=== PATIENT | male | born 1945 | race Caucasian/White ===

== ENCOUNTER → 2023-05-23 06:29 | Day surgery (SDC) | payer OTHER, SELFPAY | LOC: GI 06:29 | PROVIDERS: ATTENDING PHYSICIAN Surgery | DX: R19.5 Other fecal abnormalities (principal); Z53.8 Procedure and treatment not carried out for other reasons | CPT/HCPCS: 45378; G0378 ==

== ENCOUNTER → 2023-08-22 06:35 | Day surgery (SDC) | payer OTHER, SELFPAY | LOC: GI 06:35 | PROVIDERS: ATTENDING PHYSICIAN Surgery | DX: D12.2 Benign neoplasm of ascending colon (principal); D12.4 Benign neoplasm of descending colon; K64.8 Other hemorrhoids; Q43.8 Other specified congenital malformations of intestine; K56.2 Volvulus; R19.5 Other fecal abnormalities | CPT/HCPCS: 45380; 88305 ==

== ENCOUNTER → 2023-12-02 06:14 | Day surgery (SDC) | payer OTHER, SELFPAY | LOC: SDS 06:14 | PROVIDERS: ATTENDING PHYSICIAN Internal Medicine Gastroenterology | DX: D12.6 Benign neoplasm of colon, unspecified (principal); Z53.9 Procedure and treatment not carried out, unspecified reason ==

== ENCOUNTER → 2024-03-23 11:06 | Outpatient (REF) | payer OTHER, SELFPAY | LOC: RAD 11:06 | PROVIDERS: ATTENDING PHYSICIAN Family Medicine | DX: L03.116 Cellulitis of left lower limb (principal) | CPT/HCPCS: 93970 ==

== ENCOUNTER 2024-04-09 15:38 | Emergency (ER) | payer OTHER, SELFPAY ==
[2024-04-09 15:43] VITALS: BP 181/79
--- NOTE | 2024-04-09 15:47 | ED.GENMED ---
ED Provider Triage
<Elroy Patel PA-C - Last Filed: 04/09/24 15:47>
-
Patient seen by provider in Triage?: Seen in Triage
Attestation: A medical screening examination has been initiated by a qualified medical provider. Based on the assessment performed at this time, it has been determined that an emergent medical condition may exist and the patient has been informed
that further medical evaluation and possible additional diagnostic testing may be needed.
HPI:
GENERAL: Alert , in no apparent distress
EYE: No visual abnormalities.
NECK: Trachea midline
ENT: No visible abnormalities.
LUNGS: No acute respiratory distress
NEUROLOGICAL: Alert and oriented
SKIN: Skin intact. No visible changes.
MUSCULOSKELETAL: Moving extremities normally
PSYCH: Normal and appropriate interaction.
This is a medical evaluation conducted in person to initiate diagnostic evaluation and provide initial therapeutics. Please see further documentation by the treating clinician.
History of Present Illness
<Elroy Patel PA-C - Last Filed: 04/09/24 15:47>
General
Chief Complaint: Flank Pain
Time Seen by Provider: 04/09/24 18:27
<Charan Turner DO - Last Filed: 04/09/24 19:52>
History of Present Illness
History of Present Illness:
TIME OF INITIAL ENCOUNTER: 6:40 PM
HPI: The patient presents with a few days of left flank pain without urinary symptoms. He does have chronic back pain. He has had numerous surgeries in his low back. He is known to pain management and already takes Percocet, Flexeril,
nortriptyline. He does not take any NSAIDs as he is on anticoagulation.
EXAM:
GENERAL: Well appearing but in mild distress
HEENT: Moist oral mucosa
CARDIOVASCULAR: Questionable diastolic murmur right upper sternal border (difficulty to hear in the loud hallway), normal heart rate, regular rhythm, No chest wall tenderness
PULMONARY: No respiratory distress, breath sounds are clear and equal
ABDOMEN: Soft with no peritoneal signs, no tenderness
NEUROLOGIC: Excellent strength all extremities, no coordination deficits
PSYCHIATRIC: Appropriate mental status, normal insight and judgement
BACK: There is some point tenderness near the left 12th rib
EXTREMITIES: Nontender, no edema, moves all extremities equally
SKIN: No rash, no lesions
NUMBER AND COMPLEXITY OF PROBLEMS ADDRESSED AT THE ENCOUNTER
� Chronic conditions affecting care: High blood pressure, spinal stenosis
� Acute Exacerbation and/or Progression of Chronic Illness: This is an acute problem but does also have chronic back pain
� Differential Diagnosis includes: Exacerbation of spinal stenosis, exacerbation of chronic back pain, ureteral stone, pyelonephritis muscle strain okay thanks
AMOUNT AND/OR COMPLEXITY OF DATA TO BE REVIEWED AND ANALYZED
� I performed an independent evaluation of and my interpretation is:
EKG:
CT: CT abdomen pelvis shows moderate amount of fecal material throughout the colon
X-rays:
Laboratory Studies: White count 6.6, hemoglobin 15.6, chemistries unremarkable, urinalysis unremarkable
Other:
� Review of other/old records: The patient had a colonoscopy due to abnormal Cologuard test last year.
� Clinical information was obtained by an independent historian: I spoke to daughter at bedside
� Prescriptions/Medications Considered but not given:Did not give any additional prescription medications as patient is already given medications by pain management
� Further testing considered but not performed: No clear indication for MRI at this time
RISK OF COMPLICATIONS AND/OR MORBIDITY OR MORTALITY OF PATIENT MANAGEMENT
� Social determinants of health affecting care: Lives at home
� Discussion with other providers:
� Escalation of care including admission/observation vs risk of discharge considered: Will give a one-time dose of Toradol here. He is already taking narcotics for the past 20 years, cyclobenzaprine, and several other meds. He
will follow-up with his pain management doctor. CT imaging reviewed which is relatively unremarkable. Suspect symptoms are related to known chronic back disease.
ANY OTHER UPDATES:
Past History
<Elroy Patel PA-C - Last Filed: 04/09/24 15:47>
Past History
ED Past Medical History: HTN and Hypercholesterolemia
ED Past Surgical History: Appendectomy and Orthopedic (Back surgery. Total hip replacement)
Social History
Tobacco: Non-smoker
Alcohol: Daily (Beer 1)
Personal:
Living: with family
Phy Exam
<Charan Turner DO - Last Filed: 04/09/24 19:52>
Physical Exam
Physical Exam:
See HPI
Course
<Elroy Patel PA-C - Last Filed: 04/09/24 15:47>
Orders/Labs/Results
Orders:
Orders
04/09/24 15:47
CT Abd/pel Without Iv Or Oral Urgent
Comment:
Reason For Exam: left flank pain, hx of stone
04/09/24 15:49
Complete Blood Count/With Diff Urgent
Comprehensive Metabolic Panel Urgent
Urine Culture Reflexed from UA [Urinalysis Reflex To Culture] Urgent
Date Specimen was Collected: 04/09/24
Time Specimen was Collected: 15:45
04/09/24 18:49
Ketorolac [Toradol] 30 mg IM NOW STA
Abnormal Lab Results
04/09/24
15:49
MCH 31.3 H pg
(27.0-31.0)
Absolute Monos (auto) 0.7 H 10^3/uL
(0.1-0.6)
Monocytes % 10.3 H %
(1.7-9.3)
04/09/24 15:49
04/09/24 15:49
Vital Signs
Initial and Last Documented VS:
Initial Vital Signs
Temp Pulse Resp BP Pulse Ox
36.7 C 59 18 181/79 97
04/09/24 15:43 04/09/24 15:43 04/09/24 15:43 04/09/24 15:43 04/09/24 15:43
Last Documented Vital Signs
Temp Pulse Resp BP Pulse Ox
36.4 C 57 20 166/81 98
04/09/24 18:35 04/09/24 18:35 04/09/24 18:35 04/09/24 18:35 04/09/24 18:35
<Charan Turner, DO - Last Filed: 04/09/24 19:52>
Orders/Labs/Results
Orders:
Orders
04/09/24 15:47
CT Abd/pel Without Iv Or Oral Urgent
Comment:
Reason For Exam: left flank pain, hx of stone
04/09/24 15:49
Complete Blood Count/With Diff Urgent
Comprehensive Metabolic Panel Urgent
Urine Culture Reflexed from UA [Urinalysis Reflex To Culture] Urgent
Date Specimen was Collected: 04/09/24
Time Specimen was Collected: 15:45
04/09/24 18:49
Ketorolac [Toradol] 30 mg IM NOW STA
Abnormal Lab Results
04/09/24
15:49
MCH 31.3 H pg
(27.0-31.0)
Absolute Monos (auto) 0.7 H 10^3/uL
(0.1-0.6)
Monocytes % 10.3 H %
(1.7-9.3)
04/09/24 15:49
04/09/24 15:49
Vital Signs
Initial and Last Documented VS:
Initial Vital Signs
Temp Pulse Resp BP Pulse Ox
36.7 C 59 18 181/79 97
04/09/24 15:43 04/09/24 15:43 04/09/24 15:43 04/09/24 15:43 04/09/24 15:43
Last Documented Vital Signs
Temp Pulse Resp BP Pulse Ox
36.4 C 57 20 166/81 98
04/09/24 18:35 04/09/24 18:35 04/09/24 18:35 04/09/24 18:35 04/09/24 18:35
<Charan Turner DO - Last Filed: 04/09/24 19:52>
*Critical Care Note
Total Time (30-74mins, 75-104mins- exclusive of procedures): Not Applicable
ED Attending Note
<Elroy Patel PA-C - Last Filed: 04/09/24 15:47>
-
Portions of this chart may have been created with voice recognition software.� Occasional wrong word or��sound alike� substitutions may have occurred due to the inherent limitations of voice recognition software.
Discharge Plan
Departure
Patient Disposition: Home (Routine Discharge)
Date of Disposition: 04/09/24
Time of Disposition: 18:50
Patient with high blood pressure during this ER visit?: Yes
Discharge Problem:
Flank pain
Instructions: Flank Pain (DC), BLOOD PRESSURE
Prescriptions:
No Action
cyclobenzaprine 10 MG tablet
10 mg PO TID
buspirone 5 MG tablet
5 mg PO HS
cetirizine [Zyrtec] 10 MG tablet
10 mg PO HS
lisinopril 20 MG tablet
20 mg PO DAILY
aspirin [Aspir-Low] 81 MG tablet,delayed release (DR/EC)
81 mg PO DAILY
pravastatin 10 MG tablet
10 mg PO HS
amlodipine 10 MG tablet
10 mg PO DAILY
nortriptyline 10 MG capsule
10 mg PO HS
atenolol 50 MG tablet
50 mg PO DAILY
oxycodone 10 MG tablet
10 mg PO Q6HPRN PRN (Reason: pain)
Activity Restrictions/Additional Instructions:
Basic blood work including white blood cell count, chemistries, liver tests, are all normal. Urinalysis shows no sign of blood or infection. CAT scan shows an increased amount of stool therefore I recommend you try increasing use of MiraLAX.
Renal cysts and what appear to be liver hemangioma were also noted on CAT scan but this would not be the cause of your pain. Follow-up with your pain doctor. We gave you a dose of Toradol tonight.
Interventions
Interventions:
*Risk Screen - Suicide Last Done: 04/09/24 18:35
*General Assessment Last Done: 04/09/24 15:43
*Neglect/Abuse Screening Last Done: 04/09/24 18:35
ED- Fall Risk Assessment Last Done: 04/09/24 18:35
*ED COVID-19 Vaccine History Last Done: 04/09/24 18:35
*Nursing Disposition Last Done: 04/09/24 19:05
IV-Soqdcn-Ohpefbsykb Assessment Last Done: 04/09/24 18:35
ED-Male Genitourinary Assessment Last Done: 04/09/24 18:35
Discharge Date and Time
Discharge Date/Time: 04/09/24 19:05
Print Language: SYRIAN
[2024-04-09 16:11] LABS: Urine Albumin Trace (Neg - Trace); Urine Bilirubin Negative (Negative); Urine Character Clear (Clear); Urine Color Yellow; Urine Glucose Negative (Negative); Urine Ketone Negative (Negative); Urine Leukocyte Negative (Negative); Urine Nitrite Negative (Negative); Urine Occult Blood Negative (Negative); Urine Specific Gravity 1.025 (<1.030); Urine Urobilinogen Negative (Neg - 1+)
[2024-04-09 16:12] LABS: % Basophils 1.2 % (0-2); % Eosinophils 4.4 % (0-6); % Immature Granulocytes 0.3 % (0-0.5); % Lymphocytes 20.7 % (20.5-51.1); % Monocytes 10.3 % (1.7-9.3); % Neutrophils 63.1 % (42.2-75.2); Absolute Basophils 0.1 10^3/uL (0-0.2); Absolute Eosinophils 0.3 10^3/uL (0-0.7); Absolute Lymphocytes 1.4 10^3/uL (1.2-3.4); Absolute Monocytes 0.7 10^3/uL (0.1-0.6); Absolute Neutrophils 4.2 10^3/uL (1.4-6.5); Hematocrit 45.8 % (39.0-52.0); Hemoglobin 15.6 g/dL (13.0-18.0); Mean Corp Hgb Conc. 34.1 g/dL (33.0-37.0); Mean Corpuscular Hgb 31.3 pg (27.0-31.0); Mean Platelet Volume 9.2 fL (7.4-10.4); Nucleated Red Blood Cells % 0 % (-); Platelet Count 266 10^3/uL (130-400); Red Blood Cell Count 4.98 10^6/uL (4.70-6.10); Red Cell Dist. Width 13.2 % (11.5-14.5); White Blood Cell Count 6.6 10^3/uL (4.8-10.8)
[2024-04-09 16:25] LABS: ALT (SGPT) 26 U/L (0-50); AST (SGOT) 26 U/L (17-59); Albumin 3.9 g/dl (3.5-5.0); Alkaline Phosphatase 86 U/L (38-126); Blood Urea Nitrogen 17 mg/dl (9-20); Carbon Dioxide 29 mmol/L (22-30); Chloride 102 mmol/L (98-107); Glucose 93 mg/dl (70-99); Potassium 4.2 mmol/L (3.5-5.1); Sodium 137 mmol/L (135-145); Total Bilirubin 0.3 mg/dl (0.2-1.3); Total Protein 6.3 g/dl (6.3-8.2); eGFR > 60.00
[2024-04-09 18:35] VITALS: BP 166/81; BMI 36.0
--- NOTE | 2024-04-09 18:42 | EDRN ---
Dr. Turner currently [place] [facility] [place]
[2024-04-09] MEDS: TORADOL 30 MG IM (18:56)
== END 2024-04-09 19:05 | disposition home or self-care (01) ==
LOC: EMR 15:38
PROVIDERS: Physician Assistant Medical; EMERGENCY PHYSICIAN Emergency Medicine; FAMILY PHYSICIAN Family Medicine
DX: R10.9 Unspecified abdominal pain (principal); I10 Essential (primary) hypertension
CPT/HCPCS: 99284; 96372; 74176; 80053; 81003; 85025